=== PATIENT | female | born 1960 | race Hispanic/Latino ===

== ENCOUNTER 2019-01-27 10:23 | Emergency (ER) | payer BC, OTHER ==
[~2019-01-27] VITALS: Ht 160 cm; Wt 68.0 kg
[~2019-01-27 10:23] MED LIST: GLUCOPHAGE850 MG PO; HUMALOG100 UNIT/3 SC; LEVEMIR 3M100 UNITS/ SC; LISINOPRIL2.5 MG PO; PRAVASTATIN SOD20 MG PO
--- OUTSIDE RECORDS SUMMARY | 2019-01-27 10:26 | XMS REPORT ---
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 Allergies, Adverse Reactions, Alerts This patient has no known allergies or adverse reactions. Medications This patient has no known medications. Encounters Start Date/Time End Date/Time Encounter Type Admission Type Attending [facility] Facility Care Department Encounter ID 2019-02-14 00:00:00 2019-02-14 00:00:[address] [facility] [id number] 2018-10-30 00:00:00 2018-10-30 00:00:[address] [facility] [id number] 2018 00:00:00 2018 00:00:[address] [facility] [id number] 2018 00:00:00 2018 00:00:[address] [facility] [id number] 2018 00:00:00 2018 00:00:[address] [facility] [id number] 2018-08-26 00:00:00 2018-08-26 00:00:[address] [facility] [id number] 2018-08-26 00:00:00 2018-08-26 00:00:[address] [facility] [id number] 2018-08-26 00:00:00 2018-08-26 00:00:[address] [facility] [id number] 2018-08-26 00:00:00 2018-08-26 00:00:[address] [facility] [id number] 2018-08-26 00:00:00 2018-08-26 00:00:[address] [facility] [id number] 2018-08-15 15:10:00 2018-08-15 15:10:[address] [facility] [id number] 2018-01-31 00:00:00 2018-01-31 00:00:[address] [facility] [id number] 2017-12-03 00:00:00 2017-12-03 00:00:[address] [facility] [id number] 2017-11-02 00:00:00 2017-11-02 00:00:[address] [facility] [id number] 2017-11-02 00:00:00 2017-11-02 00:00:[address] [facility] [id number] 2017-11-02 00:00:00 2017-11-02 00:00:[address] [facility] [id number] 2017-10-22 00:00:00 2017-10-22 00:00:[address] [facility] [id number] 2017-10-16 00:00:00 2017-10-16 00:00:[address] [facility] [id number] 2017-10-08 09:58:11 2017-10-08 09:58:[address] [facility] [id number] 2017-10-02 00:00:00 2017-10-02 00:00:[address] [facility] [id number] 2017-07-25 00:00:00 2017-07-25 00:00:[address] [facility] [id number] 2017-06-06 00:00:00 2017-06-06 00:00:[address] [facility] [id number] 2017-05-21 10:56:37 2017-05-21 10:56:[address] [facility] [id number]
--- OUTSIDE RECORDS SUMMARY | 2019-01-27 10:26 | XMS REPORT | Clinical Summary ---
Author Author [facility] Organization [facility] Address Unknown Phone Unavailable Care Team Providers Care Overnight Babysitter Name Role Phone Pau Mohan PCP Allergies Comments Active Allergy Reactions Severity Noted Date Aspirin Nausea and Medium 08/31/2016 Vomiting Meperidine (Pf) Itching Medium 08/31/2016 Medications End Date Status Medication Sig Dispensed Refills Start Date Active blood glucose Use as 1 Kit 0 meterIndications: Type 2 directed.. 7 diabetes mellitus without complication, without long-term current use of insulin Active Meloxicam 7.5 mg Take 1 tablet 30 tablet 0 tabletIndications: by mouth 7 Chronic right shoulder daily. pain Active omeprazole (PRILOSEC) 20 Take 1 0 mg delayed release capsule by 8 capsule mouth daily. Active metFORMIN (GLUCOPHAGE) Take 1 tablet 180 tablet 2 1,000 mg by mouth 2 9 tabletIndications: Type 2 times daily diabetes mellitus without (with meals). complication, without long-term current use of insulin Active insulin detemir U-100 Inject 10 5 Pen 3 (LEVEMIR FLEXTOUCH U-100 Units under 9 INSULN) 100 unit/mL (3 the skin mL) PenIndications: Type daily 2 diabetes mellitus without complication, without long-term current use of insulin Active pen needle, diabetic Inject under 1 Box 3 (NOVOFINE 30) 30 gauge x the skin 9 1/3" needlesIndications: daily. Type 2 diabetes mellitus without complication, without long-term current use of insulin Active atorvastatin (LIPITOR) 20 Take 1 tablet 90 tablet 1 mg tabletIndications: by mouth at 9 Hyperlipidemia, bedtime unspecified nightly. hyperlipidemia type Active lisinopril (ZESTRIL) 2.5 Take 1 tablet 90 tablet 1 mg tabletIndications: by mouth 9 Microalbuminuria daily. Active blood glucose (PRECISION Test 2 times 200 Each 2 XTRA TEST STRIPS) test daily to test 9 stripsIndications: Type 2 blood sugar. diabetes mellitus without complication, without long-term current use of insulin Active lancets 28 Test 2 times 100 Each 1 gaugeIndications: Type 2 daily. 9 diabetes mellitus without complication, without long-term current use of insulin Active acetaminophen-codeine Take 1 tablet 30 tablet 0 (TYLENOL/CODEINE #3) by mouth 2 9 300-30 mg per times daily tabletIndications: as needed for Chronic right shoulder Pain. pain 08/15/2018 Discontinued lancets 28 Test 2 times 100 Each 1 gaugeIndications: Type 2 daily. 7 diabetes mellitus without complication, without long-term current use of insulin 08/15/2018 Discontinued blood glucose (PRECISION Test 2 times 200 Each 2 XTRA TEST STRIPS) test daily to test 7 stripsIndications: Type 2 blood sugar. diabetes mellitus without complication, without long-term current use of insulin 08/15/2018 Discontinued metFORMIN (GLUCOPHAGE) Take 1 tablet 180 tablet 2 1,000 mg by mouth 2 8 tabletIndications: Type 2 times daily diabetes mellitus without (with meals). complication, without long-term current use of insulin 08/15/2018 Discontinued atorvastatin (LIPITOR) 20 Take 1 tablet 90 tablet 1 mg tabletIndications: by mouth at 8 Hyperlipidemia, bedtime unspecified nightly. hyperlipidemia type 08/15/2018 Discontinued insulin detemir U-100 Inject 10 5 Pen 3 (LEVEMIR FLEXTOUCH U-100 Units under 8 INSULN) 100 unit/mL (3 the skin mL) PenIndications: Type daily 2 diabetes mellitus without complication, without long-term current use of insulin 08/15/2018 Discontinued pen needle, diabetic Inject under 1 Box 3 (NOVOFINE 30) 30 gauge x the skin 8 1/3" needlesIndications: daily. Type 2 diabetes mellitus without complication, without long-term current use of insulin 08/15/2018 Discontinued lisinopril (ZESTRIL) 2.5 Take 1 tablet 90 tablet 1 mg tabletIndications: by mouth 8 Microalbuminuria daily. 08/15/2018 tropicamide (MYDRIACYL) Instill 1 15 mL 0 0.5 % ophthalmic Drop in each 9 solutionIndications: Type eye once as 2 diabetes mellitus needed for up without complication, to 1 dose without long-term current (for poor use of insulin retina scan image). Active Problems Problem Noted Date Microalbuminuria 10/08/2017 Hyperlipidemia 10/08/2017 Type 2 diabetes mellitus without complication, without long-term current 05/16/2017 use of insulin Encounters Care Team Description Date Type Specialty Pau Moahn, Type 2 diabetes mellitus without complication, without long-term current use of insulin (Primary Dx); Hyperlipidemia, unspecified hyperlipidemia type; Microalbuminuria; Preventative health care; Breast pain; SOB (shortness of breath); Chronic right shoulder pain; Pain in multiple finger joints 08/15/2018 Office Visit Family Practice 08/15/2018 Travel after 01/26/2018 Immunizations Name Administration Dates Next Due Influenza Vaccine, 05/16/2017 Seasonal, Injectable Influenza, 08/15/2018 (Deferred: Patient already had this Vaccine<FLUCELVAX>(Multi- immunization - Patient received vaccine at work) Dose) PCV 13 (Pnuemococcal 05/16/2017 Conjugated 13 Valent) Family History Medical History Relation Name Comments Diabetes Brother Heart Father Massive Heart Attack Hypertension Father Stroke Father Arthritis Mother Cancer Mother Lung Cancer Diabetes Mother Heart Mother Hypertension Mother Stroke Mother Diabetes Sister Lipids Sister Relation Name Status Comments Brother Alive Father Mother Sister Alive Social History Date Tobacco Use Types Packs/Day Years Used Never Smoker Smokeless Tobacco: Never Used Tobacco Cessation: Counseling Given: Yes Drinks/Week oz/Week Comments Alcohol Use No Food Insecurity Answer Date Recorded Within the past 12 months, you worried that your Never true 08/15/2018 food would run out before you got money to buy more. Within the past 12 months, the food you bought Never true 08/15/2018 just didn't last and you didn't have money to get more. Sex Assigned at Date Recorded Not on file Industry Job Start Date Occupation Not on file Not on file Not on file Travel End Travel History Travel Start No recent travel history available. Last Filed Vital Signs Reading Time Taken Comments Vital Sign 122/72 08/15/2018 3:11 PM [employer] Blood Pressure 83 08/15/2018 3:11 PM [employer] Pulse 36.8 C (98.2 F) 08/15/2018 3:11 PM [employer] Temperature 18 08/15/2018 3:11 PM [employer] Respiratory Rate 99% 08/15/2018 3:11 PM [employer] Oxygen Saturation - - Inhaled Oxygen Concentration 63.4 kg (139 lb 12.8 oz) 08/15/2018 3:11 PM [employer] Weight 160 cm (5' 3") 08/15/2018 3:11 PM [employer] Height 24.76 08/15/2018 3:11 PM [employer] Body Mass Index Plan of Treatment Care Team Description Date Type Specialty Clinton Dee MD [address] [place], [place] [id number] anxiety and short of breath patient was informed to go to er or call 911. 02/14/2019 Office Visit Family Practice Health Maintenance Due Date Last Done Comments Cervical Cancer Scrn (3 1981 Yrs) Breast Cancer Scrn 2000 (Yearly) Colorectal Cancer Scrn 2010 Annual (FIT/FOBT) Age 50 to 75 DM Retinal Exam (Yearly) 09/28/2017 09/28/2016 DM HGBA1C (Yearly) 05/16/2018 05/16/2017, 08/31/2016, 08/21/2005 DM Foot Exam (Yearly) 10/08/2018 10/08/2017, 08/31/2016 IMM Influenza Seasonal 03/25/2019 05/16/2017 Oct to August (>/=19 yrs) Goals Goal Patient Associated Recent Progress Patient-Stat Author Goal Type Problems ed? Eat Healthy Lifestyle No Delfina Cervantes Increase Physical Activity Lifestyle No Pau Mohan, Eat Healthy Lifestyle No Susi Bustos Take medications as prescribed Self No Jazmine Jeong management Procedures Comments Procedure Name Priority Date/Time Associated Diagnosis NONINVASV OXYGEN Routine 08/15/2018 SOB (shortness of breath) SATUR;SINGLE 4:09 PM [employer] after 01/26/2018 Results Not on fileafter 01/26/2018 Insurance Type Payer Benefit Subscriber ID Effective Phone Address Plan / Dates Group [facility] xxxxxx 2016-[address] [employer] FAM[employer] / [id number] [place], [place] [address] [facility] SELF-PAY SELF-PAY xxxxxx [id number] / [place] [address] (Self)
[2019-01-27] MEDS ORDERED: SODIUM CHLORIDE 0.9% 1000ML 1,000 ML IV STA (11:00)
[2019-01-27] MEDS ORDERED: ONDANSETRON HCL INJ 2MG/ML 2ML 2 MG/ML VIAL IV NR (11:15)
[2019-01-27] MEDS ORDERED: MECLIZINE HCL 12.5 MG TAB PO ONE (11:15)
[2019-01-27 12:18] LABS: CLARITY,URINE SL CLOUDY (CLEAR); COLOR,URINE YELLOW (YELLOW)
[2019-01-27 12:19] LABS: BILIRUBIN,URINE NEGATIVE (NEGATIVE); KETONES,URINE NEGATIVE (NEGATIVE); LEUKOCYTE ESTERASE ,URINE NEGATIVE (NEGATIVE); NITRITE,URINE NEGATIVE (NEGATIVE); PROTEIN,URINE DIPSTICK NEGATIVE (NEGATIVE); URINE UROBILINOGEN 0.2 mg/dL (0.2 - 1)
[2019-01-27 12:20] LABS: AMORPHOUS SEDIMENT,URINE MODERATE (FEW); BACTERIA,URINE MANY /HPF; EPITHELIAL CELLS,URINE MODERATE /LPF; RBC,URINE 0-5 /HPF (0-5)
--- NOTE | 2019-01-27 12:22 | Diagnostic Imaging Report ---
EXAMINATION: CHEST SINGLE (PORTABLE) INDICATION: Lightheadedness COMPARISON: None FINDINGS: LINES/TUBES:None LUNGS:The lungs are well-inflated. No focal consolidation or pulmonary edema. PLEURA:No pleural effusion or pneumothorax. MEDIASTINUM:The cardiomediastinal silhouette appears normal in size and shape. BONES/SOFT TISSUES:No acute osseous injury. ABDOMEN:No free air under the diaphragm. IMPRESSION: No focal pneumonia or pulmonary edema. Signed by: Evelyn Leyva MD on 01/27/2019 12:19 PM
[2019-01-27 12:49] LABS: BASOPHILS % 0.4 % (0.0-1.0); EOSINOPHILS # (AUTO) 0.3 (0.0-0.4); EOSINOPHILS % 4.2 % (0.0-6.0); HEMATOCRIT 38.7 % (34.2-44.1); HEMOGLOBIN 13.5 g/dL (12.0-16.0); LYMPHOCYTES # (AUTO) 2.6 (1.0-3.2); LYMPHOCYTES % 34.6 % (18.0-39.1); MEAN CORPUSCULAR HEMOGLOBIN 31.7 pg (28-32); MEAN CORPUSCULAR HGB CONC 34.9 g/dL (31-35); MEAN CORPUSCULAR VOLUME 90.8 fL (81-99); MONOCYTES # (AUTO) 0.4 (0.2-0.8); MONOCYTES % 5.1 % (4.4-11.3); NEUTROPHILS # (AUTO) 4.1 (2.1-6.9); NEUTROPHILS % 55.3 % (38.7-80.0); PLATELET COUNT 234 x10e3/uL (140-360); RED BLOOD COUNT 4.26 x10e6/uL (3.6-5.1); RED CELL DISTRIBUTION WIDTH 12.6 % (11.7-14.4)
--- NOTE | 2019-01-27 12:50 | Diagnostic Imaging Report ---
Examination: CT BRAIN WO CONTRAST History:Lightheadedness. Headache. Comparison studies:None Technique: Axial images were obtained from the skull base to the vertex. Coronal and sagittal images reconstructed from the axial data. Dose modulation, iterative reconstruction, and/or weight based adjustment of the mA/kV was utilized to reduce the radiation dose to as low as reasonably achievable. Intravenous contrast: None Findings: Scalp: No abnormalities. Bones: No fractures, blastic or lytic lesions. Brain sulci: Appropriate for age. Ventricles: Normal in size and configuration. No hydrocephalus. Extra-axial space: No abnormalities. Parenchyma: No abnormal densities. No masses, hemorrhage, or acute or chronic cortical based vascular insults.. Sellar/suprasellar region: No abnormalities. Craniocervical junction: Patent foramen magnum. No Chiari one malformation. Incidental findings: Mild circumferential inflammatory mucosal thickening of the partially visualized left sphenoid sinus. Impression: No acute intracranial abnormalities. Signed by: Dr. Darlene Aranda M.D. on 01/27/2019 12:46 PM
[2019-01-27 13:09] LABS: CREATINE KINASE 46 IU/L (29-168)
[2019-01-27 13:10] LABS: INR 0.86; PROTHROMBIN TIME 12.2 seconds (11.9-14.5)
[2019-01-27 13:11] LABS: PARTIAL THROMBOPLASTIN TIME 35.2 seconds (23.8-35.5)
[2019-01-27 13:48] LABS: ANION GAP 13.9 mmol/L (8-16); BLOOD UREA NITROGEN 18 mg/dL (7-26); BUN/CREATININE RATIO 25 (6-25); CALCIUM 9.4 mg/dL (8.4-10.2); CARBON DIOXIDE 24 mmol/L (22-29); CHLORIDE 102 mmol/L (98-107); CREATININE, SERUM 0.72 mg/dL (0.57-1.11); EST GLOMERULAR FILTRATION RATE > 60 ML/MIN (60-); GLUCOSE 214 mg/dL (74-118); POTASSIUM 3.9 mmol/L (3.5-5.1); SODIUM 136 mmol/L (136-145)
== END 2019-01-27 15:06 | disposition home or self-care (01) ==
LOC: ER 10:23
DX: R42 Dizziness and giddiness (principal); I10 Essential (primary) hypertension; E11.9 Type 2 diabetes mellitus without complications; E78.00 Pure hypercholesterolemia, unspecified
CPT/HCPCS: 36415; 70450; 71045; 80048; 81001; 82550; 82553; 84484; 85025; 85610; 85730; 93005; 99284; J2405; J7030; J8597

== ENCOUNTER → 2021-10-29 | Day surgery (SDC) | payer BC, OTHER ==
[~2021-10-29] MED LIST changes: +FENTANYL CITRATE/PF 100MCG/2 ML INJ ONE; +GLYBURIDE5 MG PO; +HYOSCYAMINE SULFATE 0.5 MG/ML INJ ONE; +METFORMIN HCL850 MG PO; +MIDAZOLAM HCL 2 MG/2 ML VIAL ONE; +PROPOFOL IV EMULSION 10 MG/ML 20 ML VIAL ONE
[2021-10-29 10:15] VITALS: BP 147/84
== END | disposition home or self-care (01) ==
LOC: OR 06:44
PROVIDERS: ATTEND Internal Medicine Gastroenterology
DX: Z12.11 Encounter for screening for malignant neoplasm of colon (principal); K29.50 Unspecified chronic gastritis without bleeding; D12.4 Benign neoplasm of descending colon; D12.8 Benign neoplasm of rectum; D72.820 Lymphocytosis (symptomatic); B96.81 Helicobacter pylori [H. pylori] as the cause of diseases classified elsewhere; K20.90 Esophagitis, unspecified without bleeding; K31.1 Adult hypertrophic pyloric stenosis; K75.81 Nonalcoholic steatohepatitis (NASH); K64.8 Other hemorrhoids; R05.9 Cough, unspecified; U09.9 Post COVID-19 condition, unspecified; E11.9 Type 2 diabetes mellitus without complications; Z88.6 Allergy status to analgesic agent; Z01.810 Encounter for preprocedural cardiovascular examination; Z79.4 Long term (current) use of insulin; Z80.0 Family history of malignant neoplasm of digestive organs
CPT/HCPCS: 36415; 43239; 43245; 45385; 82948; 93005; C1726; C9113; J1980; J2250; J2704; J3010; 43233; 45378